=== PATIENT | male | born 1990 | race Caucasian/White ===

== ENCOUNTER 2024-02-27 09:51 | Outpatient (CLI) | payer BC, SELFPAY ==
--- NOTE | ~2024-02-27 | US_ITS ---
EXAM: ABDOMEN ULTRASOUND HISTORY: LUQ abdominal tenderness COMPARISON: None FINDINGS: PANCREAS: Limited evaluation of the pancreas secondary to overlying bowel gas SPLEEN: The spleen is borderline enlarged in size measuring 12.6cm in longitudinal dimension. Multiple subcentimeter foci of increased attenuation are identified within the body of the spleen. These demonstrate vascularity, suggesting hemangiomas LEFT KIDNEY: 13cm in length. No hydronephrosis or renal calculi. VASCULATURE : The abdominal aorta is nonaneurysmal. The IVC is patent. IMPRESSION: Findings within the spleen which may represent focal hemangiomas, as detailed above. Evaluation of the pancreas is limited by overlying bowel gas. Reviewed, dictated and finalized at location A. [employer] TECHNICIAN IMPRESSION: Findings within the spleen which may represent focal hemangiomas, as detailed a judi. Evaluation of the pancreas is limited by overlying bowel gas.
== END 2024-02-27 09:52 | disposition home or self-care (01) ==
DX: R10.812 Left upper quadrant abdominal tenderness (principal)
CPT/HCPCS: 76705